=== PATIENT | female | born 1970 | race Caucasian/White ===

== ENCOUNTER 2016-05-31 11:51 | Emergency (ER) | payer OTHER ==
[~2016-05-31 11:51] MED LIST: GLUCOPHAGE1000 MG PO; JANUVIA100 MG PO; JARDIANCE25 MG PO; LEVOTHYROXINE50 MCG PO; LIPITOR TAB 2020 MG PO; NORCO 5-325 TA1 EACH PO; OMEPRAZOLE20 MG PO; PROVENTIL HFA 61 INH INH; ZESTRIL2.5 MG PO; ZYLOPRIM 100 M100 MG PO
[2016-05-31 13:00] LABS: HEMOGLOBIN 15.1 gm/dl (12.3-15.3); RED BLOOD COUNT 5.01 M/UL (4.00-5.10); WHITE BLOOD COUNT 6.6 K/UL (4.5-11.0)
[2016-05-31 13:21] LABS: BUN/CREATININE RATIO 14 (0-10)
== END 2016-05-31 14:52 | disposition home or self-care (01) ==
LOC: ER1 11:51
PROVIDERS: Physician Assistant
DX: N39.0 Urinary tract infection, site not specified (principal); R19.7 Diarrhea, unspecified; R11.0 Nausea; E11.9 Type 2 diabetes mellitus without complications; F17.200 Nicotine dependence, unspecified, uncomplicated; Z90.49 Acquired absence of other specified parts of digestive tract; Z79.84 Long term (current) use of oral hypoglycemic drugs
CPT/HCPCS: 36415; 80053; 81001; 84703; 85025; 87086; 96374; 96375; 99284; J2270; J2405; J7050; Q9962

== ENCOUNTER 2016-07-26 21:35 | Emergency (ER) | payer OTHER | END 2016-07-27 03:09 | disposition home or self-care (01) | LOC: ER1 21:35 | DX: S40.011A Contusion of right shoulder, initial encounter (principal); S30.0XXA Contusion of lower back and pelvis, initial encounter; F17.210 Nicotine dependence, cigarettes, uncomplicated; W10.9XXA Fall (on) (from) unspecified stairs and steps, initial encounter | CPT/HCPCS: 29125; 72220; 73030; 73110; 96372; 99284; J2270 ==

== ENCOUNTER → 2020-07-04 | Outpatient (CLI) | payer OTHER ==
[~2020-07-04] MED LIST changes: +ATORVASTATIN CA40 MG PO; +CYMBALTA 20 MG20 MG PO; +EYE ITCH RELIEF5 ML OP; +FLONASE 0.05% N16 GM; +GLUCOTROL5 MG PO; +IPRATROPIU0.2 MG/1 M INH; +JARDIANCE10 MG PO; +KEFLEX500 MG PO; +MEDROL DOSEPAK 24 MG PO; +MYCOSTATIN100000 UTS PO; +NORFLEX 100 MG100 MG PO; +OMEPRAZOLE20 M1 PO; +PREDNISONE20 MG PO; +PROAIR HFA8.5 GM INH; +SINGULAIR10 MG PO; +SYMBICORT 16010.2 GM INH; +SYNTHROID75 MCG PO; +TIZANIDINE HCL2 MG PO; +TOPAMAX50 MG PO; +TRAZODONE HCL100 MG PO; +VIBRAMYCIN100 MG PO; +ZOFRAN ODT 4 MG4 MG PO; +ZYRTEC10 MG PO
== END ==
LOC: EXRD 14:44
DX: J45.40 Moderate persistent asthma, uncomplicated (principal); R22.2 Localized swelling, mass and lump, trunk
CPT/HCPCS: 71046

== ENCOUNTER → 2020-07-18 | Outpatient (CLI) | payer OTHER | LOC: MAMO 06-01 09:00 | DX: Z12.31 Encounter for screening mammogram for malignant neoplasm of breast (principal) | CPT/HCPCS: 77063; 77067 ==

== ENCOUNTER → 2020-08-02 | Outpatient (CLI) | payer OTHER | LOC: KOH-I 09:17 | DX: R22.2 Localized swelling, mass and lump, trunk (principal) | CPT/HCPCS: 71250 ==

== ENCOUNTER → 2020-08-23 | Outpatient (CLI) | payer OTHER | LOC: US 08-16 08:30 | DX: R10.13 Epigastric pain (principal); K76.0 Fatty (change of) liver, not elsewhere classified | CPT/HCPCS: 76705 ==

== ENCOUNTER 2020-09-03 16:05 | Emergency (ER) | payer OTHER ==
[~2020-09-03 16:05] MED LIST changes: -FLONASE 0.05% N16 GM; -MEDROL DOSEPAK 24 MG PO; -ZYRTEC10 MG PO
[2020-09-03] MEDS ORDERED: FLONASE 0.05% N16 GM (17:31)
[2020-09-03] MEDS ORDERED: ZYRTEC10 MG PO (17:31)
[2020-09-03] MEDS ORDERED: MEDROL DOSEPAK 24 MG PO (17:31)
== END 2020-09-03 17:36 | disposition home or self-care (01) ==
LOC: ER1 16:05
DX: J04.0 Acute laryngitis (principal); E11.9 Type 2 diabetes mellitus without complications; F17.210 Nicotine dependence, cigarettes, uncomplicated
CPT/HCPCS: 70360; 71046; 87081; 87880; 96372; 99283; J1100

== ENCOUNTER 2021-05-23 11:02 | Emergency (ER) | payer OTHER ==
[~2021-05-23 11:02] MED LIST changes: -OMNICEF 300 MG300 MG PO
[2021-05-23 12:46] LABS: HEMOGLOBIN 16.3 gm/dl (12.3-15.3); RED BLOOD COUNT 5.55 M/UL (4.00-5.10); WHITE BLOOD COUNT 11.8 K/UL (4.5-11.0)
[2021-05-23 13:17] LABS: BUN/CREATININE RATIO 19 (0-10)
[2021-05-23] MEDS ORDERED: OMNICEF 300 MG300 MG PO (15:44)
== END 2021-05-23 16:11 | disposition home or self-care (01) ==
LOC: ER1 11:02
PROVIDERS: Emergency Medicine
DX: N39.0 Urinary tract infection, site not specified (principal); E11.9 Type 2 diabetes mellitus without complications; K21.9 Gastro-esophageal reflux disease without esophagitis; F17.200 Nicotine dependence, unspecified, uncomplicated; Z90.49 Acquired absence of other specified parts of digestive tract
CPT/HCPCS: 80053; 81001; 82550; 82553; 83605; 83690; 84484; 85025; 87086; 93005; 96374; 96375; 99284; J2270; J2405; Q9967

== ENCOUNTER → 2021-05-23 | Outpatient (CLI) | payer OTHER ==
[~2021-05-23] MED LIST changes: +FLONASE 0.05% N16 GM; +MEDROL DOSEPAK 24 MG PO; +OMNICEF 300 MG300 MG PO; +ZYRTEC10 MG PO
== END ==
LOC: EXRD 10:34
DX: M79.641 Pain in right hand (principal)
CPT/HCPCS: 73130

== ENCOUNTER → 2021-05-31 | Outpatient (CLI) | payer OTHER ==
[~2021-05-31] MED LIST changes: +OMNICEF 300 MG300 MG PO
== END ==
LOC: KOH-I 10:45
DX: R74.8 Abnormal levels of other serum enzymes (principal); K76.0 Fatty (change of) liver, not elsewhere classified
CPT/HCPCS: 76700

== ENCOUNTER → 2021-10-02 | Outpatient (CLI) | payer OTHER | LOC: KOH-I 14:24 | DX: F17.210 Nicotine dependence, cigarettes, uncomplicated (principal) | CPT/HCPCS: 71271 ==

== ENCOUNTER → 2021-10-17 | Outpatient (CLI) | payer OTHER ==
[~2021-10-17] MED LIST changes: +CLARITIN10 MG PO; +CYMBALTA 30 MG30 MG PO; +FLOMAX 0.4 MG0.4 MG PO; +GLIPIZIDE10 MG PO; +JANUVIA 100 MG100 MG PO; +LANTUS SOL100 UNIT/1 SQ; +LEVOTHYROXINE75 MCG PO; +LIPITOR40 MG PO; +LISINOPRIL2.5 MG PO; +MACROBID 100 M100 M1 PO; +OMEPRAZOLE40 MG PO
[2021-10-17 13:09] LABS: HEMOGLOBIN 17.2 gm/dl (12.3-15.3); RED BLOOD COUNT 5.42 M/UL (4.00-5.10); WHITE BLOOD COUNT 10.8 K/UL (4.5-11.0)
[2021-10-17 13:50] LABS: BUN/CREATININE RATIO 26 (0-10)
== END ==
LOC: OPSV2 12:11
PROVIDERS: Orthopaedic Surgery
DX: Z01.812 Encounter for preprocedural laboratory examination (principal); M65.341 Trigger finger, right ring finger
CPT/HCPCS: 36415; 80048; 85025

== ENCOUNTER → 2021-10-23 | Day surgery (SDC) | payer OTHER ==
[~2021-10-23] VITALS: Ht 162.6 cm; Wt 122.9 kg
[~2021-10-23] MED LIST changes: +HYDROCODON-ACE1 EAC2 PO
== END | disposition home or self-care (01) ==
LOC: OR 06:57
DX: M65.4 Radial styloid tenosynovitis [de Quervain] (principal); M65.341 Trigger finger, right ring finger; E78.5 Hyperlipidemia, unspecified; J45.909 Unspecified asthma, uncomplicated; K21.9 Gastro-esophageal reflux disease without esophagitis; E11.9 Type 2 diabetes mellitus without complications; E03.9 Hypothyroidism, unspecified; M19.90 Unspecified osteoarthritis, unspecified site; E66.01 Morbid (severe) obesity due to excess calories; F41.9 Anxiety disorder, unspecified; F32.A Depression, unspecified; F17.210 Nicotine dependence, cigarettes, uncomplicated; Z68.42 Body mass index [BMI] 45.0-49.9, adult; Z79.4 Long term (current) use of insulin; Z79.899 Other long term (current) drug therapy
CPT/HCPCS: 82962; J0690; J2001; J2250; J2405; J2704; J3010